=== PATIENT | female | born 1995 | race Caucasian/White ===

== ENCOUNTER 2025-01-23 16:13 | Outpatient (AMB) | payer OTHER, SELFPAY ==
--- NOTE | 2025-01-23 16:20 | A.OFFPC_ITS ---
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 Injury Intake Note: Muscle Injury Breed To Wean Production Technician Required: No Accompanied by: Self / Same As Patient Allergies No Known Allergies (No Known Allergies*) Allergy (Unverified 01/23/25 16:23) Tobacco use date assessed: 01/23/25 Dental Screening Dental Screen Date: 01/23/25 Did you have a dental visit in the last 12 months?: Yes Did you have a dental problem in the last 6 months where you did not have access to dental care?: No Was dental information given to patient?: Patient has dentist HPI HPI Comments History of Present Illness Details History of Present Illness The patient is a 29 year old individual presenting to [facility] care with a new primary care physician. Nicotine Dependence (Vaping): The patient has a history of vaping for the past eight years and is currently in the process of titrating down the usage. The patient identifies vaping as the last vice to address as part of recovery. Substance Use Disorder in Remission: The patient has a history of alcohol and cannabis use disorders and is currently in recovery. The patient has been sober from alcohol for almost a year and a half and from cannabis for eight months, and has been attending Alcoholics Anonymous for roughly eight months. There is also a history of cocaine use and recreational use of hallucinogens. Chronic Low Back Pain: The patient reports a chronic injury in the lower back that began during past years of alcohol consumption, associated with stomping on concrete at concerts. The pain randomly flares up, and the patient attended physical therapy a year ago but cannot recall the reason for it. History of Insomnia: The patient has a history of significant sleep problems for most of life. The patient was previously on Seroquel for about six months but self-discontinued it due to concerns about its effect on blood sugar. Currently, sleep is reported as good, managed with a consistent schedule and supplements including inositol, magnesium, and chamomile. Menstrual History: The patient's menstruations are typically on the heavy side, with a cycle length of 30 to 35 days, which has been a consistent pattern. Menarche occurred at age 11. The patient is not currently using any form of control. Surgical History: - Knee tendon repair following a disloca tion at age 17. - Ovarian cyst removal at age 19 for an 8 cm cyst causing excessive pain. Medications: - Inositol for sleep - Magnesium for sleep - Chamomile for sleep Social History: - Substance Use: The patient has vaped f or eight years and is currently titrating down. - The patient is in recovery from alcoho l and substance use, attending AA for eight months, and has been sober from cannabis for eight months and alcohol for almost a year and a half. - Past use of cocaine and recreational h allucinogens is reported. 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 - Exercise: Takes walks during breaks at work. Family History: - No family history was discussed. Diagnostic Results: - Pap smear (approximately 9 months ago) : Presumed normal as the patient was not contacted with abnormal results. Past Medical History - Prone to fractures - Knee dislocation at age 17 - Hand injury with residual finger numbn ess - Ovarian cyst at age 19 - Chronic insomnia - Substance Use Disorder (alcohol, canna bis, cocaine) in remission - Nicotine dependence (vaping) Health Maintenance - The patient is establishing primary ca re. - Last Pap smear was approximately nine months ago with presumed normal results. - The patient is not currently using any form of control. - The patient is in recovery for substan ce use disorder, with sobriety from alcohol for almost 1.5 years and from cannabis for 8 months. - The patient is actively reducing vapin g with the goal of cessation. [facility] Medical History (Updated 01/23/25 @ 17:02 by Warner Gomez MD) History of insomnia Chronic lower back pain Substance use disorder Nicotine dependence Surgical History (Updated 01/23/25 @ 16:25 by Christopher Norman CMA) H/O ovarian cystectomy H/O knee surgery H/O hand surgery Family History (Updated 01/23/25 @ 16:26 by Christopher Norman CMA) Paternal Grandfather Substance abuse Paternal Uncle Substance abuse Maternal Aunt Diabetes Father Hypertension Other FH: mental illness Social History (Updated 01/23/25 @ 16:26 by Christopher Norman CMA) Housing: House Alcohol intake: never Patient Tobacco Use Status: Never used Tobacco e-Cigarette/Vaping Use: Currently Using service: No Current occupational status: employed 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 1. Little interest or pleasure in doing things: not at all 2. Feeling down, depressed, or hopeless: not at all 3. Trouble falling or staying asleep, or sleeping too much: not at all 4. Feeling tired or having little energy: not at all 5. Poor appetite or overeating: not at all 6. Feeling bad about yourself - or that you are a failure or have let yourself or your family down: not at all 7. Trouble concentrating on things, such as reading the newspaper or watching television: not at all 8. Moving or speaking so slowly that other people could have noticed. Or the opposite - being so fidgety or restless that you have been moving around a lot more than usual: not at all 9. Thoughts that you would be better off or of hurting yourself in some way: not at all Total score: 0 Depression Screening Interpretation: Negative Depression Screening Done: Yes 78602 - PHQ-9 Billing: Yes Source: Developed by Drs. Usama Calderon, Muna Smith, Asif Rodriges and colleagues, with an educational rajni from [employer]. Thrive Questionnaire Date Thrive assessed: 01/23/25 I am a: Patient What is your living situation today?: I have a steady place to live Within the past 12 months, did the food you bought not last and you didn't have the money to get more?: Never true Within the past 12 months, did you worry whether your food would run out before you got money to buy more?: Never true Do you have trouble paying for medicines?: No Do you have trouble getting transportation to medical appointments?: No Do you have trouble paying your heating and electricity bill?: No Do you have trouble taking care of your child, family member or friend?: No Are you currently unemployed and looking for a job?: No Are you interested in more education?: Yes Please select the resources that you would like help with: Job search/training and Education Currently or been in a relationship where the following occur: No concerns reported THRIVE Score: 0 AUDIT C Alcohol Use Questionnaire (AUDIT-C) 1. How often do you have a drink containing alcohol?: Never Total Score: 0 LILI-7 AMB Questionnaire LILI-7 Date LILI - 7 assessed: 01/23/25 Feeling nervous, anxious, or on edge: 0 = Not at all Not being able to stop or control worryin = Not at all Worrying too much about different things: 0 = Not at all Trouble relaxin = Not at all Being so restless that it is hard to sit still: 0 = Not at all Becoming easily annoyed or irritable: 0 = Not at all Feeling afraid as if something awful might happen: 0 = Not at all Total LILI-7 score (0-4 normal; 5-9 mild; 10-14 moderate; 15-21 severe): 0 Source: Developed by Drs. Usama Calderon, Muna Smith, Asif Rodriges and colleagues, with an educational rajni from [employer]. LILI-7 Assessment Billing LILI-7 Assessment Tool: LILI-7 Assessment 73062 Review of Systems Narrative Review of Systems - Constitutional: Reports feeling at one of the healthiest points in life. - Neurological: Reports persistent numbness in one finger following a past hand injury. - Musculoskeletal: Reports chronic low back pain with intermittent flare-ups. - Denies extremity swelling. - Genitourinary: Reports menses are typically heavy with a cycle length of 30-35 days. - Reports frequent urination secondary to high fluid intake. - Gastrointestinal: Denies problems with bowel movements. - Psychiatric/Behavioral: History of insomnia, now well-controlled with supplements. 10-point ROS reviewed and negative except as noted in HPI Physical exam (Primary Care) Vital Signs: Last Vital Signs Temp 97.9 F 01/23/25 16:27 Pulse 103 H 01/23/25 16:27 Resp 22 H 01/23/25 16:27 BP 107/59 L 01/23/25 16:27 Pulse Ox 97 01/23/25 16:27 Oxygen Delivery Method Room Air 01/23/25 16:27 BMI result Body Mass Index 22.2 Tobacco/Smoking Status: Tobacco use Status Tobacco use date assessed 01/23/25 01/23/25 16:29 Patient Tobacco Use Status Never used Tobacco 01/23/25 16:29 e-Cigarette/Vaping Use Currently Using 01/23/25 16:29 PHQ-9: PHQ-9 Score PHQ-9: Total score 0 01/23/25 16:29 Depression Screening Interpretation: Negative Thrive Assessment: Date of Thrive Assessment Date Thrive assessed 01/23/25 01/23/25 16:29 Currently or been in a relationship where the following occur: No concerns reported Narrative Physical Exam General: Well-appearing, in no acute distress. Vital signs: Within normal limits. HEENT: Normocephalic, atraumatic. PERRLA, EOMI. Conjunctiva clear, sclera anicteric. Oropharynx clear, mucous membranes moist. TMs intact bilaterally. Neck: Supple, no lymphadenopathy, no thyromegaly, no JVD or carotid bruits. Cardiovascular: RRR, normal S1/S2, no murmurs, rubs, or gallops. Peripheral pulses 2+ and symmetric. No edema. Respiratory: Lungs clear to auscultation bilaterally, no wheezes, rales, or rhonchi. Normal effort. Abdomen: Soft, non-tender, non-distended. Normoactive bowel sounds. No hepatosplenomegaly, no masses. MSK: Full range of motion, no joint swelling or deformity. Normal gait. Chronic lower back injury noted, with occasional flare-ups. Skin: Warm, dry, intact. No rashes, lesions, or pallor. Neuro: Alert and oriented x3. Cranial nerves II-XII intact. Strength 5/5 throughout. Sensation intact except for numbness in the finger due to previous glass injury. Reflexes 2+ symmetric. Normal coordination and gait. Psych: Appropriate mood and affect. Normal judgment and insight. Patient is in recovery, attending AA for eight months, and has been sober from alcohol for almost a year and a half. Coding Level of Care Code New Pt Level 4 (45926) Diagnoses Nicotine dependence F17.200 Substance use disorder F19.90 Chronic lower back pain M54.50; G89.29 History of insomnia Z87.898 Additional Codes LILI-7 Assessment Billing - LILI-7 Assessment Tool: LILI-7 Assessment 88984 ([id number]) PHQ-9 - 06802 - PHQ-9 Billing: Yes ([id number]) Assessment & Plan Assessment & Plan (1) Nicotine dependence: Code(s): F17.200 - Nicotine dependence, unspecified, uncomplicated Category: Medical (2) Substance use disorder: Code(s): F19.90 - Other psychoactive substance use, unspecified, uncomplicated Category: Medical (3) Chronic lower back pain: Code(s): M54.50 - Low back pain, unspecified; G89.29 - Other chronic pain Category: Medical (4) History of insomnia: Code(s): Z87.898 - Personal history of other specified conditions Category: Medical Plan Consent The patient provided verbal consent for a comprehensive blood panel and a follow-up visit in two weeks to discuss the results after the plan was explained. Patient was informed and verbally consented to the use of an ambient scribe for clinic note documentation during this visit. Plan 1. Health Maintenance / Establishment Of Care - Order a comprehensive blood panel including a complete blood count, comprehensive metabolic panel, hemoglobin A1c, lipid panel, vitamin B12, folate, vitamin D, thyroid panel, urinalysis, and screening for Hepatitis B and C. - Schedule a follow-up visit in two weeks to review lab results and discuss any abnormalities. 2. Nicotine Dependence (Vaping) - Acknowledge and support the patient's current efforts to titrate down and eventually quit vaping. 3. Chronic Low Back Pain - The patient's history of chronic low back pain was noted. - No new interventions are planned at this time; will continue to monitor. Discussion Notes I discussed with the patient that as this is an initial visit, we will proceed with ordering a comprehensive baseline blood panel to get a full overview of their health. I explained that the labs will include a complete blood count, a comprehensive metabolic panel to check liver and kidney function, hemoglobin A1c, a lipid panel, vitamin levels, thyroid function, a urinalysis, and screening for Hepatitis B and C. We will have a follow-up appointment in two weeks to review these results in detail. I informed the patient that our on-site lab is available for the blood draw or they could use an alternative lab. The patient understood the plan and was in agreement. Patient Instructions - Please go to the lab to have your blood drawn for the ordered tests. - You can use the lab in our clinic, which is open from 9:00 AM to 4:00 PM, or another lab that is convenient for you. - Schedule a follow-up appointment with our office in two weeks to review your lab results. - Continue with your plan to reduce and ultimately stop vaping. Medical Decision Making The patient is a 29-year-old individual presenting for establishment of primary care. Given that this is an initial encounter, a comprehensive baseline assessment is warranted to evaluate the patient's overall health status. Due to the patient's reported history of substance use (alcohol, cannabis, cocaine), screening for infectious diseases such as Hepatitis B and C is clinically indicated. A broad laboratory panel including CBC, CMP, HbA1c, lipids, and lubin vitamin levels will provide a necessary metabolic and hematologic baseline. The patient's efforts in achieving and maintaining sobriety, as well as tapering off nicotine, are commendable and were encouraged. A follow-up visit in 2 weeks will be used to discuss results and formulate a long-term health maintenance plan. Total Time Statement 30 min Total time spent caring for the patient today includes pre-visit chart review, documentation, review of laboratory and diagnostic imaging results, medication reconciliation, medically necessary evaluation, counseling on diagnoses, care coordination, ordering appropriate tests and medications, review of tests performed by other providers, reporting test results to the patient, and communication with other healthcare providers. Orders: Orders Complete Blood Count Auto Diff Today Z13.9 - Encounter for screening, unspecified Comprehensive Met. Panel Today Z13.9 - Encounter for screening, unspecified Hepatitis C Antibody Today Z13.9 - Encounter for screening, unspecified TSH reflex Free T4 Today Z13.9 - Encounter for screening, unspecified Magnesium Today Z13.9 - Encounter for screening, unspecified Hepatitis B Surface Antibody Today Z13.9 - Encounter for screening, unspecified Hepatitis B Surface Antigen Today Z13.9 - Encounter for screening, unspecified HIV Ab/Ag Today Z13.9 - Encounter for screening, unspecified UA CC w/rflx Micro + Cult Today Z13.9 - Encounter for screening, unspecified Lipid Panel Today Z13.9 - Encounter for screening, unspecified Vitamin B12 and Folate Today Z13.9 - Encounter for screening, unspecified Hemoglobin A1c Today Z13.9 - Encounter for screening, unspecified Vitamin D 1,25 dihydroxy Today Z13.9 - Encounter for screening, unspecified
[2025-01-23 16:27] VITALS: BP 107/59; PULSE 103; RESP 22; TEMP 36.6; O2SAT 97; BMI 22.2
--- OUTSIDE RECORDS SUMMARY | 2025-01-23 20:23 | XMS_ITS ---
Author Name [facility] Organization Unknown Care Team Organization Name Specialty Phone Email Start Date End Mikey Vazquez [facility] 05/27/202205/01
--- OUTSIDE RECORDS SUMMARY | 2025-01-23 20:23 | XMS_ITS | Clinical Summary ---
Author Organization [facility] Address [address] [place] [address] Care Team Providers Care Instrument Assembler Name Role Phone Unavailable Primary Care Provider Unavailabl e Immunizations Immunization Administration Dates Next Due Pfizer SARS-CoV-2 COVID-19, mRNA, LNP-S, preservative free 07/18/2020,06/27/2020 Social History Tobacco Use Types Packs/Day Years Used Date Smoking Tobacco: Every Day Smokeless Tobacco: Never Alcohol Use Standard Drinks/Week Comments Not Currently 0 (1 standard drink = 0.6 oz pur e alcohol) Comments Unknown Sex and Gender Information Value Date Recorded Sex Assigned at Not on file Legal Sex Female 4:09 PM EST Gender Identity Not on file Sexual Orientation Not on file Obstetrics History Plan of Treatment Health Maintenance Due Date Last Done Comments DTaP,Tdap,and Td Vaccines (1 - Tdap) 08/11/2015 Hepatitis B Vaccines (1 of 3 - 19+ 3-dose series) 08/11/2015 Pneumococcal Vaccine: Pediatrics (0 to 5 Years) and At-Risk Patients (6 to 49 Years) (1 of 2 - PCV) 08/11/2015 Cervical Cancer Screening: P ap Smear 2017 HIV Screening 01/29/2022 Hepatitis C Screening 01/29/2022 Social Influencers of Health Screening 01/29/2022 HPV Vaccines (1 - 3-dose SCD M series) 08/11/2023 Depression Screening 03/02/2024 COVID-19 Vaccine (3 - 2024-2 6 season) 2024 07/18/2020, 06/27/2020 Influenza Vaccine (#1) 2024 RSV Immunization Adult Patients (1 - 1-dose 75+ series) 08/11/2071 HIB Vaccines Aged Out No longer eligi ble based on patient's age to complete this topic Hepatitis A Vaccines Aged Out No long er eligible based on patient's age to complete this topic IPV Vaccines Aged Out No longer eligi ble based on patient's age to complete this topic MMR Vaccines Aged Out No longer eligi ble based on patient's age to complete this topic Meningococcal ACWY Vaccine Aged Out N o longer eligible based on patient's age to complete this topic Meningococcal B Vaccine Aged Out No l onger eligible based on patient's age to complete this topic RSV Immunization Patients Under 20 months Aged Out No longer eligible b ased on patient's age to complete this topic Varicella Vaccines Aged Out No longer eligible based on patient's age to complete this topic
--- OUTSIDE RECORDS SUMMARY | 2025-01-23 20:23 | XMS_ITS | Clinical Summary ---
Author Organization [facility] Address [address] [place] [phone] Phone Care Team Providers Care Restorative Aide Name Role Phone Hollie Nair MD Primary Care Provider Un available Allergies Active Allergy Reactions Criticality Noted Date Comments Banana Other (See Comments) 09/27/2007 mouth itches Active Problems Problem Noted Date Diagnosed Date Overweight 06/26/2008 Overview (04/22/2014): Overweight Contact dermatitis 09/27/2007 Overview (04/22/2014): Contact dermatitis; arms, legs and face Immunizations Immunization Administration Dates Next Due COVID-19 (Pre-12/22) Pfizer Vaccine, mRNA, PF ,06/27/2020 Meningococcal MCV4P 01/11/2008 Tdap 12/09/2006 Social History Tobacco Use Types Packs/Day Years Used Date Smoking Tobacco: Never Assessed Education Answer Date Recorded Are you interested in more education? Not on rashard e 07/05/2022 Are you concerned about learning? Not on file 07/05/2022 No 07/05/2022 No 07/05/2022 Digital Access Answer Date Recorded No 07/27/2022 No 07/27/2022 No 07/27/2022 Reliable internet access at home? Not on file 07/27/2022 Device with a working camera? Not on file Comments Unknown Sex and Gender Information Value Date Recorded Sex Assigned at Not on file Legal Sex Female 5:35 PM EST Gender Identity Not on file Sexual Orientation Not on file Last Filed Vital Signs Vital Sign Reading Time Taken Comments Blood Pressure 116/74 02/26/2009 2:23 PM EST Pulse 114 09/19/2008 8:46 PM EDT Temperature 36.8 C (98.3 F) 09/19/2008 8:46 PM EDT Respiratory Rate 22 09/19/2008 8:46 PM EDT Oxygen Saturation - - Inhaled Oxygen Concentration - - Weight 68.9 kg (152 lb) 02/26/2009 2:23 PM EST Height 168.3 cm (5' 6.25 ) 02/26/2009 2:23 PM ES T Body Mass Index 24.35 02/26/2009 2:23 PM EST Plan of Treatment Health Maintenance Due Date Last Done Comments DEPRESSION SCREENING 2008 SMOKING Hx and SMOKELESS TOBACCO SCREENING 2009 HEPATITIS C SCREENING 2014 HIV ONE-TIME SCREENING (18-6 5 YEARS) 2014 Adult Td,Tdap Booster 12/09/2016 12/09/2006 PAP SMEAR 2017 INFLUENZA VACCINE (#1) 2024 COVID-19 VACCINE (2024-2 6 season) 2024 07/18/2020, 06/27/2020 MENINGOCOCCAL VACCINES (ACWY) Aged Out 01/11/2008 No longer eligible based on patient's age to complete this topic HEPATITIS A VACCINES Aged Out No long er eligible based on patient's age to complete this topic HIB VACCINES Aged Out No longer eligi ble based on patient's age to complete this topic IPV VACCINES Aged Out No longer eligi ble based on patient's age to complete this topic MENINGOCOCCAL VACCINES (B) Aged Out N o longer eligible based on patient's age to complete this topic PNEUMOCOCCAL VACCINES (0-49 years) Aged Out No longer eligible b ased on patient's age to complete this topic Medical Devices Not on file Insurance [facility] [place] [address] [employer] PPO [employer] [place] [place] [address] [place] [id number] [employer] P[place] [employer] P[employer] Care Teams Restorative Aide Relationship Specialty Start Date End Date Hollie Nair MD PCP - General 03/25/13 Additional Source Comments The information contained in this document represents components of the legal health record. It is not the complete legal health record.[facility]
--- OUTSIDE RECORDS SUMMARY | 2025-01-23 20:23 | XMS_ITS | Clinical Summary ---
Author Organization [facility] Address [address] [place] [id number] Care Team Providers Care Silk Screen Operator Name Role Phone Unavailable Primary Care Provider Unavailabl e Allergies Active Allergy Reactions Criticality Noted Date Comments Banana 05/27/2022 Medications No known medications Active Problems No known active problems Social History Tobacco Use Types Packs/Day Years Used Date Smoking Tobacco: Every Day Nicotine Inhalation Smokeless Tobacco: Never Tobacco Cessation:Ready to Q uit: No Alcohol Use Standard Drinks/Week Comments Not Currently 0 (1 standard drink = 0.6 oz pur e alcohol) Sex and Gender Information Value Date Recorded Sex Assigned at Female 09/01/2021 12:08 AM EDT Gender Identity Female 11/22/2021 3:46 PM EDT Sexual Orientation Not on file Job Start Date Occupation Industry Not on file Not on file Not on file Last Filed Vital Signs Vital Sign Reading Time Taken Comments Blood Pressure 155/81 05/27/2022 10:59 AM EDT Pulse 74 05/27/2022 10:59 AM EDT Temperature 36.7 C (98.1 F) 05/27/2022 10:59 AM EDT Respiratory Rate 15 05/27/2022 10:59 AM EDT Oxygen Saturation 100% 05/27/2022 10:59 AM EDT Inhaled Oxygen Concentration - - Weight 77.1 kg (170 lb) 05/27/2022 10:59 AM EDT Height 172.7 cm (5' 8 ) 05/27/2022 10:59 AM EDT Body Mass Index 25.85 05/27/2022 10:59 AM EDT Plan of Treatment Health Maintenance Due Date Last Done Comments Hepatitis C Screening 1996 Hepatitis B Vaccines (3 of 3 - 3-dose series) 07/13/1997 05/18/1997, 1996 Pneumococcal Vaccine (1 of 2 - PCV) 2002 Depression Screening 2008 Preventative Health Evaluation 2014 DTap / Tdap / Td (2 - Td or Tdap) 12/09/2016 12/09/2006 Cervical Cancer Screening (Pap Smear) 2017 COVID-19 Vaccine (3 - 2024-2 6 season) 2024 07/18/2020, 06/27/2020 Influenza Vaccine (#1) 2024 RSV Ped < 20 months Aged Out No longe r eligible based on patient's age to complete this topic
== END 2025-01-23 16:51 | disposition home or self-care (01) ==
LOC: HO.HMCFMS 16:14
PROVIDERS: PCP Student in an Organized Health Care Education/Training Program; Visit Provider Student in an Organized Health Care Education/Training Program
DX: F17.200 Nicotine dependence, unspecified, uncomplicated (principal); F19.90 Other psychoactive substance use, unspecified, uncomplicated; M54.50 Low back pain, unspecified; G89.29 Other chronic pain; Z87.898 Personal history of other specified conditions

== ENCOUNTER → 2025-01-23 16:13 | Outpatient (BNVA) | payer OTHER, SELFPAY | PROVIDERS: PCP Student in an Organized Health Care Education/Training Program; Visit Provider Student in an Organized Health Care Education/Training Program | DX: Z76.89 Persons encountering health services in other specified circumstances (principal); F19.90 Other psychoactive substance use, unspecified, uncomplicated; M54.50 Low back pain, unspecified; G89.29 Other chronic pain; F17.200 Nicotine dependence, unspecified, uncomplicated; Z87.898 Personal history of other specified conditions; Z13.31 Encounter for screening for depression; Z13.39 Encounter for screening examination for other mental health and behavioral disorders | CPT/HCPCS: 96127 ==

== ENCOUNTER 2025-02-03 13:51 | Outpatient (REF) | payer OTHER, SELFPAY ==
--- OUTSIDE RECORDS SUMMARY | 2025-02-03 18:08 | XMS_ITS | Clinical Summary ---
Author Organization [facility] Address [address] [place] [phone] Phone Care Team Providers Care Sterile Process Coordinator Name Role Phone Hollie Nair MD Primary [...] topic Medical Devices Not on file Insurance [place] [id number] C[place] [address] CIGNA PPO CIG[place] PPO [place] [id number] [place] [id number] CIG[employer] PPO CIGNA PPO Care Teams Sterile Process Coordinator Relationship Specialty Start Date End Date Hollie Nair MD PCP - General 03/25/13 Additional Source Comments The information contained in this document represents components of the legal health record. It is not the complete legal health record.[facility]
--- OUTSIDE RECORDS SUMMARY | 2025-02-03 18:08 | XMS_ITS | Clinical Summary ---
Author Organization [facility] Prior to 07/30/[address] [place] [address] Care Team Providers Care Remediation Technician Name Role Phone Unavailable Primary Care Provider [...]
--- OUTSIDE RECORDS SUMMARY | 2025-02-03 18:08 | XMS_ITS | Clinical Summary ---
Author Organization [facility] Address [address] [place] [address] Care Team Providers Care Door Captain Name Role Phone Unavailable Primary Care Provider [...]
[2025-02-03 18:32] LABS: Appearance Urine Clear; Glucose Urine UA Negative (Negative); PH 8.5 (5.0-9.0); Specific Gravity - Urine <= 1.005 (1.005-1.025)
[2025-02-03 18:35] LABS: MANUAL DIFF FLAG NO
[2025-02-03 18:39] LABS: Hematocrit 42.8 % (37.0-47.0); Hemoglobin 14.3 g/dl (12.0-16.0); Imm Gran Abs Auto 0.03 X10*3/uL (0.00-0.03); Imm Gran Pct Auto 0.4 % (0.0-0.4); Lymphocytes Absolute Auto 2.2 X10*3/uL (1.2-4.9); Mean Corpuscular HGB Conc 33.4 g/dl (31.0-35.0); Mean Corpuscular Hemoglobin 29.8 pg (27.0-33.0); Mean Corpuscular Volume 89.2 fL (80.0-98.0); NRBC Abs Auto 0.000 X10*3/uL (0.0-0.012); NRBC Pct Auto 0.0 /100WBC (0.0-0.2); Platelet Count 327 X10*3/uL (160-400); Red Blood Count 4.80 X10*6/uL (4.20-5.50); White Blood Count 8.4 X10*3/uL (4.8-10.8)
[2025-02-03 19:35] LABS: Alanine Aminotransferase 55 U/L (0-31); Albumin Level 4.3 g/dL (3.5-5.0); Alkaline Phosphatase 53 U/L (39-117); Anion Gap 9 (12-20); Aspartate Amino Transferase 63 U/L (5-31); Blood Urea Nitrogen 12 mg/dL (9-16); Calcium 9.1 mg/dL (8.4-10.2); Carbon Dioxide 29 mmol/L (22-29); Chloride 108 mmol/L (96-108); Cholesterol 137 mg/dL (<200); Estimated Glomerular Filt Rate > 60; HDL Cholesterol 49 mg/dL (>40); Magnesium 2.2 mg/dL (1.6-2.6); Potassium 3.8 mmol/L (3.3-5.1); Sodium 142 mmol/L (135-145); Total Protein 6.2 g/dL (6.5-8.0); Triglycerides 63 mg/dL (<150)
[2025-02-04 00:06] LABS: Folate 13.4 ng/mL (> or = 4.0); Vitamin B12 573 pg/mL (200-900)
[2025-02-04 08:57] LABS: HBS Num1 0.85 mIU/mL (0-7.99); HBsAGNum1 0.33 S/CO (0.00-0.99); HIV Num 1 0.04 S/CO (0.00-0.99); Hepatitis B Surface Antigen Negative (Negative); ~HepC Num1 0.05 S/CO (0.00-0.79); ~Hepatitis B Surface Antibody NONREACTIVE (Nonreactive); ~Hepatitis C Antibody Nonreactive (Nonreactive)
== END 2025-02-03 13:52 | disposition home or self-care (01) ==
LOC: HO.HKASLDS 13:51
PROVIDERS: PCP Student in an Organized Health Care Education/Training Program; Visit Provider Student in an Organized Health Care Education/Training Program
DX: Z11.4 Encounter for screening for human immunodeficiency virus [HIV] (principal); Z13.6 Encounter for screening for cardiovascular disorders; Z13.0 Encounter for screening for diseases of the blood and blood-forming organs and certain disorders involving the immune mechanism; Z13.29 Encounter for screening for other suspected endocrine disorder; Z13.21 Encounter for screening for nutritional disorder
CPT/HCPCS: 36415; 80053; 80061; 81003; 82607; 82652; 82746; 83036; 83735; 84443; 85025; 86706; 86803; 87340; 87389

== ENCOUNTER 2025-02-09 16:07 | Outpatient (AMB) | payer OTHER, SELFPAY ==
[2025-02-09 16:10] VITALS: BP 106/63; PULSE 89; RESP 16; TEMP 36.4; O2SAT 97; BMI 22.1
--- NOTE | 2025-02-09 16:10 | A.OFFPC_ITS ---
Vital Signs 02/09/25 16:10 Height 5 ft 8.75 in Weight 148 lb 8 oz BMI 22.1 BP 106/63 Blood Pressure Location Rt brachial Position Sitting Respiration 16 Pulse 89 Pulse Source Pulse Oximeter Temp 97.5 F Temp Source Oral Pulse Oximetry (%) 97 Oxygen Delivery Method Room Air Intake Visit Reasons: 2 week follow up Intake Note: Muscle Injury Lien Searcher Required: No Accompanied by: Self / Same As Patient Allergies No Known Allergies (No Known Allergies*) Allergy (Verified 02/09/25 16:14) Tobacco use date assessed: 02/09/25 Dental Screening Dental Screen Date: 02/09/25 Did you have a dental visit in the last 12 months?: Yes Did you have a dental problem in the last 6 months where you did not have access to dental care?: No Was dental information given to patient?: Patient has dentist HPI HPI Comments History of Present Illness Details History of Present Illness The patient is a 29 year old female presenting for review of lab results and discussion of mental health history. Elevated liver enzymes: The patient's lab results show elevated liver enzymes, with an AST of 63 and an ALT of 55, where the cutoff is 31. Other liver function markers, including alkaline phosphatase and total bilirubin, are normal. History of alcohol use: The patient reports a past history of heavy drinking for a couple of years. She reports that her sobriety started during an intensive outpatient program (IOP). History of mental health disorders: The patient reports an extensive mental health history, including past diagnoses of borderline personality disorder (BPD), depression, and anxiety. She has a history of multiple inpatient admissions, with the most recent one being at [facility] about nine months ago in April for suicidal ideation. This admission occurred two months after her grandmother, with whom she was very close and lived, from dementia. The last time she saw a mental health professional was over a year ago. Currently, she feels she is doing the best she has in her entire life and is in remission but is contemplating finding a therapist for preventative measures. Social History: - Substance Use: Denies current alcohol use. - She reports a past history of heavy dr inking for a couple of years. - Her sobriety began during an intensive outpatient program. - Family Status: Reports she was very cl ose to her grandmother who from dementia two months prior to her last psychiatric admission. - She lived with her grandmother and hel ped her father in providing care. Family History: - Grandmother: History of dementia. Diagnostic Results: - Complete blood count: Normal, includin g white blood cells, red blood cells, hemoglobin, hematocrit, and platelets. - Comprehensive metabolic panel: Normal sodium, potassium, chloride, kidney function, calcium, magnesium, alkaline phosphatase, and total bilirubin. - Random glucose: Normal. - Liver function tests: AST is elevated at 63 (cutoff 31) and ALT is elevated at 55 (cutoff 31). - Lipid panel: Triglycerides, total chol esterol, LDL, and HDL are all normal. - Vitamin levels: Vitamin B12, vitamin D , and folate are normal. - Thyroid function tests: Normal. - Urinalysis: Normal. - Infectious disease screening: Negative for Hepatitis B, Hepatitis C, and HIV. Past Medical History - Borderline Personality Disorder: Diagn osed in the past. - Depression: Diagnosed in the past. - Anxiety: Diagnosed in the past. - History of inpatient psychiatric admis sions: The patient has had multiple inpatient stays. - The last admission was at [facility] in April of this year for suicidal ideation. - Treatment History: She completed an in tensive outpatient program (IOP) that she found to be phenomenal. Health Maintenance - Labs reviewed and were normal, except for elevated liver enzymes. - Discussed establishing care with a the rapist for preventative mental health management. - Provided referral information for [facility]. [facility] Medical History (Updated 02/10/25 @ 10:29 by Warner Gomez MD) Anxiety and depression Borderline personality disorder History of alcohol abuse Elevated liver enzymes History of insomnia Chronic lower back pain Substance use disorder Nicotine dependence Surgical History H/O ovarian cystectomy H/O knee surgery H/O hand surgery Family History Paternal Grandfather Substance abuse Paternal Uncle Substance abuse Maternal Aunt Diabetes Father Hypertension Other FH: mental illness Social History Housing: House Alcohol intake: never Patient Tobacco Use Status: Never used Tobacco e-Cigarette/Vaping Use: Currently Using service: No Current occupational status: employed 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 1. Little interest or pleasure in doing things: not at all 2. Feeling down, depressed, or hopeless: not at all 3. Trouble falling or staying asleep, or sleeping too much: not at all 4. Feeling tired or having little energy: not at all 5. Poor appetite or overeating: not at all 6. Feeling bad about yourself - or that you are a failure or have let yourself or your family down: not at all 7. Trouble concentrating on things, such as reading the newspaper or watching television: not at all 8. Moving or speaking so slowly that other people could have noticed. Or the opposite - being so fidgety or restless that you have been moving around a lot more than usual: not at all 9. Thoughts that you would be better off or of hurting yourself in some way: not at all Total score: 0 Depression Screening Interpretation: Negative Depression Screening Done: Yes 30032 - PHQ-9 Billing: Yes Source: Developed by Drs. Usama Calderon, Muna Smith, Asif Rodriges and colleagues, with an educational rajni from [employer]. Thrive Questionnaire Date Thrive assessed: 02/09/25 I am a: Patient What is your living situation today?: I have a steady place to live Within the past 12 months, did the food you bought not last and you didn't have the money to get more?: Never true Within the past 12 months, did you worry whether your food would run out before you got money to buy more?: Never true Do you have trouble paying for medicines?: No Do you have trouble getting transportation to medical appointments?: No Do you have trouble paying your heating and electricity bill?: No Do you have trouble taking care of your child, family member or friend?: No Do you have trouble with day-to-day activities such as bathing, preparing meals, shopping, managing finances, etc.?: No Are you currently unemployed and looking for a job?: No Are you interested in more education?: Yes Please select the resources that you would like help with: Job search/training and Education Currently or been in a relationship where the following occur: No concerns reported THRIVE Score: 0 AUDIT C Alcohol Use Questionnaire (AUDIT-C) 1. How often do you have a drink containing alcohol?: Never 3. How often do you have six or more drinks on one occasion?: Never Total Score: 0 LILI-7 AMB Questionnaire LILI-7 Date LILI - 7 assessed: 02/09/25 Feeling nervous, anxious, or on edge: 0 = Not at all Not being able to stop or control worryin = Not at all Worrying too much about different things: 0 = Not at all Trouble relaxin = Not at all Being so restless that it is hard to sit still: 0 = Not at all Becoming easily annoyed or irritable: 0 = Not at all Feeling afraid as if something awful might happen: 0 = Not at all Total LILI-7 score (0-4 normal; 5-9 mild; 10-14 moderate; 15-21 severe): 0 Source: Developed by Drs. Usama Calderon, Muna Smith, Asif Rodriges and colleagues, with an educational rajni from [employer]. LILI-7 Assessment Billing LILI-7 Assessment Tool: LILI-7 Assessment 90206 Review of Systems Narrative Review of Systems - Psychiatric: Reports past history of depression, anxiety, and suicidal ideation. - She currently feels she is doing well. - General: Denies any current issues. 10-point ROS reviewed and negative except as noted in HPI Physical exam (Primary Care) Vital Signs: Last Vital Signs Temp 97.5 F 02/09/25 16:10 Pulse 89 02/09/25 16:10 Resp 16 02/09/25 16:10 BP 106/63 02/09/25 16:10 Pulse Ox 97 02/09/25 16:10 Oxygen Delivery Method Room Air 02/09/25 16:10 BMI result Body Mass Index 22.1 Tobacco/Smoking Status: Tobacco use Status Tobacco use date assessed 02/09/25 02/09/25 16:16 Patient Tobacco Use Status Never used Tobacco 02/09/25 16:16 e-Cigarette/Vaping Use Currently Using 02/09/25 16:16 PHQ-9: PHQ-9 Score PHQ-9: Total score 0 02/10/25 10:26 Depression Screening Interpretation: Negative Thrive Assessment: Date of Thrive Assessment Date Thrive assessed 02/09/25 02/09/25 16:16 Currently or been in a relationship where the following occur: No concerns reported Narrative Physical Exam General: Well-appearing, in no acute distress. Vital signs: Within normal limits. HEENT: Normocephalic, atraumatic. PERRLA, EOMI. Conjunctiva clear, sclera anicteric. Oropharynx clear, mucous membranes moist. TMs intact bilaterally. Neck: Supple, no lymphadenopathy, no thyromegaly, no JVD or carotid bruits. Cardiovascular: RRR, normal S1/S2, no murmurs, rubs, or gallops. Peripheral pul ses 2+ and symmetric. No edema. Respiratory: Lungs clear to auscultation bilaterally, no wheezes, rales, or rhonchi. Normal effort. Abdomen: Soft, non-tender, non-distended. Normoactive bowel sounds. No hepatosplenomegaly, no masses. MSK: Full range of motion, no joint swelling or deformity. Normal gait. Skin: Warm, dry, intact. No rashes, lesions, or pallor. Neuro: Alert and oriented x3. Cranial nerves II-XII intact. Strength 5/5 throughout. Sensation intact. Reflexes 2+ symmetric. Normal coordination and gait. Psych: Appropriate mood and affect. Normal judgment and insight. History of borderline personality disorder, depression, and anxiety. Previous inpatient treatment for suicidal ideation. Currently feeling well and in remission. Coding Level of Care Code Est Pt Level 3 (75902) Add On Problem Visit Only Diagnoses Elevated liver enzymes R74.8 Substance use disorder F19.90 History of insomnia Z87.898 History of alcohol abuse F10.11 Borderline personality disorder F60.3 Anxiety and depression F41.9; F32.A Nicotine dependence F17.200 Additional Codes LILI-7 Assessment Billing - LILI-7 Assessment Tool: LILI-7 Assessment 19244 ([id number]) PHQ-9 - 22919 - PHQ-9 Billing: Yes ([id number]) Assessment & Plan Assessment & Plan (1) Elevated liver enzymes: Code(s): R74.8 - Abnormal levels of other serum enzymes Category: Medical (2) Substance use disorder: Code(s): F19.90 - Other psychoactive substance use, unspecified, uncomplicated Category: Medical (3) History of insomnia: Code(s): Z87.898 - Personal history of other specified conditions Category: Medical (4) History of alcohol abuse: Code(s): F10.11 - Alcohol abuse, in remission Category: Medical (5) Borderline personality disorder: Code(s): F60.3 - Borderline personality disorder Category: Medical (6) Anxiety and depression: Code(s): F41.9 - Anxiety disorder, unspecified; F32.A - Depression, unspecified Category: Medical (7) Nicotine dependence: Code(s): F17.200 - Nicotine dependence, unspecified, uncomplicated Category: Medical Plan Consent Patient was informed and verbally consented to the use of an ambient scribe for clinic note documentation during this visit. Plan 1. Elevated Liver Enzymes - To investigate the elevated AST and ALT, a liver ultrasound will be ordered to assess the liver's structure. - The patient was advised this is not an urgent matter and to get it done when the facility calls. - Plan to follow up after the liver ultrasound is completed. 2. History Of Mental Health Disorders - Discussed the patient's extensive mental health history including borderline personality disorder, depression, and anxiety. - Provided the patient with a referral to [facility] for potential preventative therapy, noting they offer virtual visits. - The patient was encouraged to contact them when she is ready. Discussion Notes I reviewed the lab results with the patient, noting that while most results were normal, her liver enzymes (AST and ALT) were elevated. I explained that to investigate this further, I would order a liver ultrasound to visualize the structure of her liver, and I reassured her that this was not an urgent test. The patient disclosed her extensive mental health history, including past diagnoses of BPD, depression, anxiety, multiple inpatient admissions, and a history of suicidal ideation. We discussed her interest in finding a therapist for preventative care, despite feeling well currently. I provided her with a contact number for [facility], a group that offers virtual services, and encouraged her to reach out when she felt ready. I advised a follow-up visit after she completes the liver ultrasound. Patient Instructions - An imaging center will call you to schedule a liver ultrasound. Please get this done when they call. - For mental health support, you can contact [facility] at [phone] or look them up online. - They offer virtual appointments. - Please schedule a follow-up appointment with me after you have completed the liver ultrasound. Medical Decision Making The patient is a 29-year-old female who presented for a review of her recent lab work. The labs revealed elevated liver enzymes (AST 63, ALT 55) in the context of otherwise normal metabolic and hematologic panels and negative infectious disease screens. Given her reported history of heavy alcohol use, it is prudent to evaluate the liver structurally. Therefore, a non-urgent liver ultrasound is indicated to rule out structural abnormalities as the cause of her transam initis. The patient also disclosed a significant mental health history, including diagnoses of BPD, depression, and anxiety, with multiple prior psychiatric admissions, the most recent being nine months ago for suicidal ideation. Although she currently feels she is in remission, she expressed a desire for preventative therapy. I provided a referral to [facility] to facilitate access to mental health services. The plan is to follow up after the liver ultrasound to review the results and reassess. Total Time Statement 20 min Total time spent caring for the patient today includes pre-visit chart review, documentation, review of laboratory and diagnostic imaging results, medication reconciliation, medically necessary evaluation, counseling on diagnoses, care coordination, ordering appropriate tests and medications, review of tests performed by other providers, reporting test results to the patient, and communication with other healthcare providers. Orders: Orders US abdomen limited 02/09/25 R74.8 - Abnormal levels of other serum enzymes
--- OUTSIDE RECORDS SUMMARY | 2025-02-09 23:16 | XMS_ITS | Clinical Summary ---
Author Organization [facility] Address [address] [place] [address] Care Team Providers Care Metaphysics Teacher Name Role Phone Unavailable Primary Care Provider [...] on file Sexual Orientation Not on file Plan of Treatment Health Maintenance Due Date [...]
--- OUTSIDE RECORDS SUMMARY | 2025-02-09 23:16 | XMS_ITS | Clinical Summary ---
Author Organization [facility] Prior to 07/30/[address] [place] [address] Care Team Providers Care Director Of Operations Home Health Name Role Phone Unavailable Primary Care Provider [...]
--- OUTSIDE RECORDS SUMMARY | 2025-02-09 23:16 | XMS_ITS | Clinical Summary ---
Author Organization [facility] Address [address] [place] [phone] Phone Care Team Providers Care Product Applications Engineer Name Role Phone Hollie Nair MD Primary [...] file [place] [address] C[place] [address] CIG[place] PPO CIGNA PPO [place] [address] [place] [address] C[employer] PPO [employer] PPO Care Teams Product Applications Engineer Relationship Specialty Start Date End Date Hollie Nair MD PCP - General 03/25/13 Additional Source Comments The information contained in this document represents components of the legal health record. It is not the complete legal health record.[facility]
== END 2025-02-09 16:46 | disposition home or self-care (01) ==
LOC: HO.HMCFMS 16:08
PROVIDERS: PCP Student in an Organized Health Care Education/Training Program; Visit Provider Student in an Organized Health Care Education/Training Program
DX: R74.8 Abnormal levels of other serum enzymes (principal); F19.90 Other psychoactive substance use, unspecified, uncomplicated; Z87.898 Personal history of other specified conditions; F10.11 Alcohol abuse, in remission; F60.3 Borderline personality disorder; F41.9 Anxiety disorder, unspecified; F32.A Depression, unspecified; F17.200 Nicotine dependence, unspecified, uncomplicated

== ENCOUNTER → 2025-02-09 16:07 | Outpatient (BNVA) | payer OTHER, SELFPAY | PROVIDERS: PCP Student in an Organized Health Care Education/Training Program; Visit Provider Student in an Organized Health Care Education/Training Program | DX: R74.8 Abnormal levels of other serum enzymes (principal); F19.90 Other psychoactive substance use, unspecified, uncomplicated; F10.11 Alcohol abuse, in remission; F60.3 Borderline personality disorder; F41.9 Anxiety disorder, unspecified; F32.A Depression, unspecified; F17.200 Nicotine dependence, unspecified, uncomplicated; Z71.6 Tobacco abuse counseling; Z87.898 Personal history of other specified conditions | CPT/HCPCS: 96127 ==

== ENCOUNTER 2025-02-14 15:33 | Outpatient (AMB) | payer OTHER, SELFPAY ==
--- NOTE | 2025-02-14 15:35 | MHC.OFFWIV ---
Intake Vital Signs 02/14/25 15:36 Height 5 ft 8.75 in Weight 150 lb BMI 22.3 BP 108/72 Blood Pressure Location Lt brachial Position Sitting Pulse 92 Pulse Source Pulse Oximeter Temp 98.3 F Temp Source Oral Pulse Oximetry (%) 98 Oxygen Delivery Method Room Air Intake Visit Reasons: EP - Middle Finger Injury Intake Note: EP caught her left hand middle finger stuck in the car door an hour ago. There is a browsing color skin visible in the distal part of the middle finger. Patient Tobacco Use Status: Never used Tobacco Allergies No Known Allergies (No Known Allergies*) Allergy (Verified 02/14/25 15:45) Medication List - Last Reconciled 02/14/25 by Breana Hernandez MD No Known Home Meds Do you need a note to return to daycare/school/sports/work: Yes HPI HPI Comments History of Present Illness Details History of Present Illness The patient is a 29 year old female presenting for evaluation of her left middle finger after slamming it in a car door. Crush injury of left middle finger: - The patient slammed her left distal middle finger in a car door approximately one hour prior to the visit. - She reports a throbbing, stinging, sensation in the distal finger. - She also experiences numbness and tingling in the finger. - She reports normal ROM of the finger Review of Systems - Neurological: Reports numbness and tingling in the distal middle finger - Musculoskeletal: Reports throbbing and stinging pain in the affected finger. Physical Exam General Appearance: Normal appearance, well developed. No acute distress Head: Normocephalic, atraumatic Pulmonary: No respiratory distress. Musculoskeletal: Swelling noted along the distal aspect of the left 3rd digit with TTP. 2 mm hematoma noted along the volar aspect of the digit. No active bleeding. Normal ROM of the digit. Cap refill < 2 seconds. Sensation intact distally. Patient noted to have artificial nails, no subungual hematoma noted with partial visualization of the nail. Mental Status: Alert and Oriented x 3 Psychiatric: Normal mood. Normal affect. [facility] Medical History (Updated 02/10/25 @ 10:29 by Warner Gomez MD) Anxiety and depression Borderline personality disorder History of alcohol abuse Elevated liver enzymes History of insomnia Chronic lower back pain Substance use disorder Nicotine dependence Surgical History H/O ovarian cystectomy H/O knee surgery H/O hand surgery Family History Paternal Grandfather Substance abuse Paternal Uncle Substance abuse Maternal Aunt Diabetes Father Hypertension Other FH: mental illness Social History Housing: House Alcohol intake: never Patient Tobacco Use Status: Never used Tobacco e-Cigarette/Vaping Use: Currently Using service: No Current occupational status: employed 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, 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 Current occupational exposures/hazards: Yes Cognitive needs: No Hearing needs: No Vision needs: No Physical Exam Vital Signs: Last Vital Signs Temp 98.3 F 02/14/25 15:36 Pulse 92 02/14/25 15:36 BP 108/72 02/14/25 15:36 Pulse Ox 98 02/14/25 15:36 Oxygen Delivery Method Room Air 02/14/25 15:36 BMI result Body Mass Index 22.3 Assessment & Plan Assessment & Plan (1) Crushing injury of left middle finger: Code(s): S67.193A - Crushing injury of left middle finger, initial encounter Qualifiers: Encounter type: initial encounter Qualified Code(s): S67.193A - Crushing injury of left middle finger, initial encounter Plan Assessment and Plan 1. Crush injury of left middle finger - Patient reports slamming her left distal 3rd digit in a car door about 1 hour prior to arrival - She has good ROM of the digit, however noted to have TTP along the distal digit - Discussed obtaining xrays of the digit to r/o fracture. Patient reports she will have imaging done if she continues to have pain by this weekend - She currently has artificial nails. Partial visualization does not reveal a subungual hematoma. Offered to grind down nail bangladeshi for better visualization which patient declined. Advised to monitor for any blood accumulation under the nail. - Discussed potential splint vs juan david taping in the interim. Patient reports she will monitor without intervention at this time. - Recommended ice on and off to help with swelling. Patient was informed and verbally consented to the use of an ambient scribe for clinic note documentation during the visit. Orders: Orders XR finger LT min 2V Today S69.92XA - Unspecified injury of left wrist, hand and finger(s), initial encounter Coding Level of Care Code Est Pt Level 3 (83536) Diagnoses Crushing injury of left middle finger, initial encounter S67.193A Encounter type: initial encounter
[2025-02-14 15:36] VITALS: BP 108/72; PULSE 92; TEMP 36.8; O2SAT 98; BMI 22.3
--- OUTSIDE RECORDS SUMMARY | 2025-02-14 19:42 | XMS_ITS | Clinical Summary ---
Author Organization [facility] Prior to 07/30/[address] [place] [address] Care Team Providers Care Urgent Care Nurse Practitioner Name Role Phone Unavailable Primary Care Provider [...]
--- OUTSIDE RECORDS SUMMARY | 2025-02-14 19:42 | XMS_ITS | Clinical Summary ---
Author Organization [facility] Address [address] [place] [address] Care Team Providers Care Catalytic Case Operator Name Role Phone Unavailable Primary Care [...]
--- OUTSIDE RECORDS SUMMARY | 2025-02-14 19:42 | XMS_ITS | Clinical Summary ---
Author Organization [facility] Address [address] [place] [phone] Phone Care Team Providers Care Barrel Filler Name Role Phone Hollie Nair MD Primary [...] file [place] [address] [employer] [address] CIGNA PPO CIGNA PPO [place] [address] [place] [address] CIG[employer] PPO [employer] PPO Care Teams Barrel Filler Relationship Specialty Start Date End Date Hollie Nair MD PCP - General 03/25/13 Additional Source Comments The information contained in this document represents components of the legal health record. It is not the complete legal health record.[facility]
== END 2025-02-14 16:03 | disposition home or self-care (01) ==
LOC: HO.HMCWIS 15:33
PROVIDERS: PCP Student in an Organized Health Care Education/Training Program; Visit Provider Family Medicine
DX: S67.193A Crushing injury of left middle finger, initial encounter (principal)